=== PATIENT | female | born 1975 | race Caucasian/White ===

== ENCOUNTER → 2017-04-09 | Outpatient (CLI) | payer OTHER ==
[~2017-04-09] MED LIST: ACHD5005 PO; CEFD300C3; CEPH500C PO; CTLP20T; CTLP20T PO; CYCL10TA9 PO; IPRA3AMP19; LITH300T; MTF500T; ONDA-42 SL; PNT40TEC PO; PRM25T PO
== END ==
LOC: CARD 13:50
PROVIDERS: ATTEND Nurse Practitioner Family
DX: R42 Dizziness and giddiness (principal)
CPT/HCPCS: 93005

== ENCOUNTER → 2017-08-07 | Outpatient (CLI) | payer OTHER ==
--- NOTE | 2017-08-07 18:05 | Diagnostic Imaging Report ---
CLINICAL INDICATION: Patient with cough and chest pain x1 week. Exam: Chest x-ray PA and lateral views. Comparisons: Chest x-ray dated 04/26/2009. Findings: Lungs/pleura: Lungs are clear. There is no pneumothorax. There is no pleural effusion. Mediastinum: Unremarkable. Pulmonary vasculature: Unremarkable. Heart: Unremarkable. Bones/extrathoracic soft tissue: There are surgical clips overlying the left upper quadrant which have been placed in the interim. There is small degenerative spurs involving the thoracic spine. Impression: There is no radiographic evidence of acute cardiopulmonary process. Dictated by: Dictated on workstation # [id number]
== END ==
LOC: RAD 17:45
PROVIDERS: ATTEND Family Medicine
DX: R05 Cough (principal); R07.9 Chest pain, unspecified
CPT/HCPCS: 71046

== ENCOUNTER → 2017-11-08 | Outpatient (CLI) | payer OTHER ==
--- NOTE | 2017-11-08 16:30 | Diagnostic Imaging Report ---
INDICATION: Persistent headache x3 months. TECHNIQUE: Noncontrast brain CT is performed. FINDINGS: There were no extra-axial fluid collections. No intracranial hemorrhage. No intracranial mass or mass effect. No midline shift. The ventricles are normal in size and position. There were no focal parenchymal abnormalities in the brain. Calvarial windows were unremarkable. IMPRESSION: Negative noncontrast brain CT. Dictated by: Dictated on workstation # [id number]
== END ==
LOC: RAD 14:39
PROVIDERS: ATTEND Family Medicine
DX: R51 Headache (principal)
CPT/HCPCS: 70450

== ENCOUNTER → 2017-11-14 | Outpatient (CLI) | payer OTHER ==
[~2017-11-14] VITALS: Ht 157.5 cm; Wt 61.2 kg
[~2017-11-14] MED LIST changes: +CATHETER FLUSH 10 ML SYR IVP PRN; +GADOBUTROL 7.5 MMOL/7.5 ML (GADAVIST) VIAL IV ONE; +IOHEXOL 300 MG/ML 30 ML (OMNIPAQUE 300) VIAL IV ONE; +LIDOCAINE 1% INJ 20 ML 20 ML VIAL INJ ONE
--- NOTE | 2017-11-14 18:18 | Diagnostic Imaging Report ---
EXAMINATION: MRI right shoulder with contrast. INDICATION: Shoulder pain. TECHNIQUE: Multiplanar images utilizing both T1- and T2-weighted sequences were obtained. Additional images following administration of intravenous contrast were also performed. FINDINGS: The previous MRI right shoulder exam of 11/26/2014 noted a nondisplaced fracture of the greater tuberosity of the proximal humerus. There is no evidence for a tear of the rotator cuff or for the labrum. A few prominent lymph nodes were seen in the right axilla. On this study, there is a small area of altered signal along the anterior margin of the insertion of the rotator cuff. This may be secondary to susceptibility artifact from a surgical procedure which has occurred in the interval since the prior exam. Correlation with the patient's surgical history would be recommended. There is no evidence for a tear of the rotator cuff, and the supraspinatus muscle is not retracted. However, the undersurface of the supraspinatus muscle near its attachment is somewhat irregular, and there may be a small partial tear in this region. The acromioclavicular joint is not hypertrophied, and there is no narrowing of the outlet for the supraspinatus muscle. The biceps tendon and the subscapularis tendon are intact. The labrum may be slightly thinned posteriorly, but there is no evidence for a labral tear. There is no abnormal signal arising from the osseous structures to suggest bone edema or a fracture. The axillary adenopathy seen on the prior exam is not appreciated on this study. IMPRESSION: 1. There is still no evidence for a tear of the rotator cuff, but the undersurface of the supraspinatus muscle is irregular and may be partially torn. The supraspinatus muscle itself is not retracted or bunched. 2. The small area of altered signal in the soft tissues along the anterior margin of the rotator cuff may be related to susceptibility artifact from interval surgical procedure. 3. The acromioclavicular joint is not hypertrophied, and there is no narrowing of the outlet for the supraspinatus muscle. 4. The labrum is thinned posteriorly, but there is no labral tear identified. 5. There is no sign of an acute bony abnormality. Dictated by: Dictated on workstation # [id number]
--- NOTE | 2017-11-14 18:58 | Diagnostic Imaging Report ---
EXAM: Right shoulder injection for MRI INDICATION: Shoulder pain FINDINGS: The prior right humerus exam of 04/04/2013 failed to show any sign of an acute abnormality. The preliminary film of this study was unremarkable, as well. Following aseptic preparation of the skin and administration of local anesthesia a 21-gauge needle was advanced into the glenohumeral joint using fluoroscopic guidance. Subsequently, a 12 cc mixture of Omnipaque, sodium chloride and Gadavist was infused. The patient tolerated the procedure well and was sent to the MR suite in the condition. IMPRESSION: There has been a successful injection of the glenohumeral joint on the right. MRI is pending for further study. Dictated by: Dictated on workstation # [id number]
== END ==
LOC: RAD 13:32
PROVIDERS: ATTEND Orthopaedic Surgery
DX: M94.8X1 Other specified disorders of cartilage, shoulder (principal)
CPT/HCPCS: 23350; 73040; 73222

== ENCOUNTER → 2017-12-23 | Outpatient (CLI) | payer OTHER ==
[~2017-12-23] MED LIST changes: -CATHETER FLUSH 10 ML SYR IVP PRN; -GADOBUTROL 7.5 MMOL/7.5 ML (GADAVIST) VIAL IV ONE; -IOHEXOL 300 MG/ML 30 ML (OMNIPAQUE 300) VIAL IV ONE; -LIDOCAINE 1% INJ 20 ML 20 ML VIAL INJ ONE
--- NOTE | 2017-12-23 20:49 | Diagnostic Imaging Report ---
INDICATION: Headache times approximately 4 months with neck pain. No known injury. TECHNIQUE: AP, lateral and odontoid views cervical spine.. CORRELATION STUDY: None FINDINGS: Straightening and reversal of normal cervical lordosis, apex at C5 level. Otherwise relatively normal alignment. Vertebral body heights and disc spaces appear maintained and unremarkable. Prevertebral soft tissues are unremarkable. Odontoid unremarkable. Lateral masses C1 and C2 not well-defined. IMPRESSION: 1. Straightening and reversal of normal cervical lordosis associated with splinting and/or spasm versus simply patient positioned. Otherwise relative unremarkable examination of the cervical spine. Dictated by: Dictated on workstation # [id number]
== END ==
LOC: RAD 14:02
PROVIDERS: ATTEND Chiropractor
DX: M54.2 Cervicalgia (principal); R51 Headache
CPT/HCPCS: 72040

== ENCOUNTER 2019-01-05 13:08 | Emergency (ER) | payer OTHER ==
[~2019-01-05] VITALS: Ht 162 cm; Wt 54.0 kg
[2019-01-05 13:26] LABS: BILIRUBIN,URINE NEGATIVE (NEGATIVE); CLARITY,URINE CLEAR; COLOR,URINE YELLOW; GLUCOSE, URINE (UA) NEGATIVE (NEGATIVE); KETONES,URINE NEGATIVE (NEGATIVE); LEUKOCYTE ESTERASE ,URINE NEGATIVE (NEGATIVE); NITRITE,URINE NEGATIVE (NEGATIVE); PH,URINE 5.5 (5-9); PROTEIN,URINE NEGATIVE (NEGATIVE)
[2019-01-05 13:34] LABS: BACTERIA,URINE TRACE /HPF
[2019-01-05] MEDS ORDERED: FAMOTIDINE 20 MG (PEPCID) TABLET PO STA (13:40)
[2019-01-05 13:41] LABS: AMPHETAMINE SCREEN, URINE NEGATIVE (NEGATIVE); BARBITURATE SCREEN URINE NEGATIVE (NEGATIVE); BENZODIAZEPINES SCREEN URINE NEGATIVE (NEGATIVE); CANNABINOID SCREEN, URINE NEGATIVE (NEGATIVE); COCAINE SCREEN URINE NEGATIVE (NEGATIVE); METHADONE STAT NEGATIVE (NEGATIVE); METHAMPHETAMINE SCREEN URINE S NEGATIVE (NEGATIVE); OPIATE SCREEN URINE NEGATIVE (NEGATIVE); OXYCODONE STAT NEGATIVE (NEGATIVE); PROPOXYPHENE STAT NEGATIVE (NEGATIVE); TRICYCLIC ANTIDEPRESSANTS SCRE NEGATIVE (NEGATIVE)
[2019-01-05] MEDS ORDERED: ANTACID SUSP 30 ML UDC (MYLANTA) PO ONE (13:45)
[2019-01-05] MEDS ORDERED: LIDOCAINE 2% VISCOUS 15 ML UDC PO ONE (13:45)
[2019-01-05] MEDS ORDERED: ASPIRIN 81 MG CHEW (CHILDREN'S ASA) PO ONE (13:45)
[2019-01-05 13:52] LABS: BASOPHILS % (AUTO) 0 % (0-10); EOSINOPHILS # (AUTO) 0.2 10^3/uL (0.0-0.3); EOSINOPHILS % (AUTO) 4 % (0-10); HEMATOCRIT 34 % (35-52); HEMOGLOBIN 11.1 G/DL (11.5-16.0); LYMPHOCYTES # (AUTO) 1.4 X 10^3 (1.0-4.0); LYMPHOCYTES % (AUTO) 24 % (12-44); MEAN CORPUSCULAR HEMOGLOBIN 26 PG (25-34); MEAN CORPUSCULAR HGB CONC 33 G/DL (32-36); MEAN CORPUSCULAR VOLUME 78 FL (80-99); MONOCYTES # (AUTO) 0.5 X 10^3 (0.0-1.0); MONOCYTES % (AUTO) 8 % (0-12); NEUTROPHILS # (AUTO) 3.9 X 10^3 (1.8-7.8); NEUTROPHILS % (AUTO) 65 % (42-75); PLATELET COUNT 258 10^3/uL (130-400); RED CELL DISTRIBUTION WIDTH 14.7 % (10.0-14.5)
--- NOTE | 2019-01-05 13:56 | ED Chest Pain ---
General Chief Complaint: Chest Pain Stated Complaint: CHEST PAIN Nursing Triage Note: PT CO OF CHEST PAIN FOR APPROX 1 WEEK HAS HAD RECENT HX OF PNEM Nursing Sepsis Screen: No Definite Risk Source: patient, spouse Exam Limitations: no limitations History of Present Illness Date Seen by Provider: Jan 05, 2019 Time Seen by Provider: 13:34 Initial Comments Patient presents to ER by private conveyance with her significant other and chief complaint of left-sided chest pain radiating around from her back and back through. She says it gets worse throughout the day and she does feel short of breath but she's not having a cough fever chills nausea vomiting sweats. No history of coronary disease. No history of lung disease although 2 weeks ago she was treated with antibiotics alongside her by Dr. Sosa for pneumonia. She does not have a history of GERD. 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 Her chest pain started about a week ago and is only progressively gotten worse. She denies a history of hyperlipidemia, hypertension, diabetes, hypothyroidism, previous coronary disease or early onset familial coronary disease. She denies any swelling pain tenderness or redness in either of her calves. No periods of immobility. No cancer. Allergies and Home Medications Allergies Coded Allergies: Sulfa (Sulfonamide Antibiotics) (Verified Allergy, Unknown, 11/14/17) Home Medications Naproxen 500 Mg Tablet, 500 MG PO BID Prescribed by: BRIE MERCADO on 01/05/19 1504 Patient Home Medication List Home Medication List Reviewed: Yes Review of Systems Review of Systems Constitutional: No chills, No diaphoresis, No fever EENTM: No Blurred Vision, No Double Vision Respiratory: Denies Cough; Shortness of Air Cardiovascular: See HPI, Chest Pain; Denies Edema, Denies Lightheadedness, Denies Palpitations, Denies Syncope Gastrointestinal: Denies Abdomen Distended, Denies Abdominal Pain, Denies Cons tipated, Denies Diarrhea, Denies Difficulty Swallowing, Denies Nausea Genitourinary: Denies Burning, Denies Discharge Musculoskeletal: No back pain, No joint pain Skin: No pruritus, No rash Psychiatric/Neurological: Denies Headache, Denies Numbness, Denies Paresthesia All Other Systems Reviewed Negative Unless Noted: Yes Past Gbxpkra-Owrkld-Lzfdlw Hx Patient Social History Alcohol Use: Occasionally Uses Recreational Drug Use: No Smoking Status: Never a Smoker Recent Foreign Travel: No Contact w/Someone Who Travel: No Recent Infectious Disease Expo: No Physical Abuse: No Sexual Abuse: No Immunizations Up To Date Tetanus Booster (TDap): Less than 5yrs Date of Influenza Vaccine: Dec 19, 2014 Past Medical History Hypertension Depression Physical Exam Vital Signs Vital Signs - First Documented 01/05/19 13:20 O2 Delivery Room Air Capillary Refill : Less Than 3 Seconds Height, Weight, BMI Height: 5'2.00" Weight: 135lbs. 0.0oz. 61.482130cz; 20.00 BMI Method:Stated General Appearance: Anxious, Mild Distress, Thin HEENT: PERRL/EOMI, Pharynx Normal, Moist Mucous Membranes Neck: Full Range of Motion, Normal Inspection, Non Tender, Supple Respiratory: Chest Non Tender, Lungs Clear, Normal Breath Sounds, No Accessory Muscle Use, No Respiratory Distress Cardiovascular: Regular Rate, Rhythm, No Edema, Normal Peripheral Pulses Gastrointestinal: Normal Bowel Sounds, Non Tender, Soft Extremity: Normal Capillary Refill, Normal Inspection, Normal Range of Motion, Non Tender, No Pedal Edema Neurologic/Psychiatric: Alert, Oriented x3, No Motor/Sensory Deficits Skin: Normal Color, Warm/Dry Progress/Results/Core Measures Results/Orders Lab Results Laboratory Tests Test 01/05/19 13:15 01/05/19 13:20 Range/Units Urine Color YELLOW Urine Clarity CLEAR Urine pH 5.5 5-9 Urine Specific [place] >=1.030 1.016-1.022 Urine Protein NEGATIVE NEGATIVE Urine Glucose (UA) NEGATIVE NEGATIVE Urine Ketones NEGATIVE NEGATIVE Urine Nitrite NEGATIVE NEGATIVE Urine Bilirubin NEGATIVE NEGATIVE Urine Urobilinogen 0.2 < = 1.0 MG/DL Urine Leukocyte Esterase NEGATIVE NEGATIVE Urine RBC (Auto) NEGATIVE NEGATIVE Urine RBC NONE /HPF Urine WBC NONE /HPF Urine Squamous Epithelial Cells 2-5 /HPF Urine Crystals NONE /LPF Urine Bacteria TRACE /HPF Urine Casts NONE /LPF Urine Mucus SMALL H /LPF Urine Culture Indicated NO Urine Opiates Screen NEGATIVE NEGATIVE Urine Oxycodone Screen NEGATIVE NEGATIVE Urine Methadone Screen NEGATIVE NEGATIVE Urine Propoxyphene Screen NEGATIVE NEGATIVE Urine Barbiturates Screen NEGATIVE NEGATIVE Ur Tricyclic Antidepressants Screen NEGATIVE NEGATIVE Urine Phencyclidine Screen NEGATIVE NEGATIVE Urine Amphetamines Screen NEGATIVE NEGATIVE Urine Methamphetamines Screen NEGATIVE NEGATIVE Urine Benzodiazepines Screen NEGATIVE NEGATIVE Urine Cocaine Screen NEGATIVE NEGATIVE Urine Cannabinoids Screen NEGATIVE NEGATIVE White Blood Count 6.0 4.3-11.0 10^3/uL Red Blood Count 4.33 L 4.35-5.85 10^6/uL Hemoglobin 11.1 L 11.5-16.0 G/DL Hematocrit 34 L 35-52 % Mean Corpuscular Volume 78 L 80-99 FL Mean Corpuscular Hemoglobin 26 25-34 PG Mean Corpuscular Hemoglobin Concent 33 32-36 G/DL Red Cell Distribution Width 14.7 H 10.0-14.5 % Platelet Count 258 130-400 10^3/uL Mean Platelet Volume 11.0 H 7.4-10.4 FL Neutrophils (%) (Auto) 65 42-75 % Lymphocytes (%) (Auto) 24 12-44 % Monocytes (%) (Auto) 8 0-12 % Eosinophils (%) (Auto) 4 0-10 % Basophils (%) (Auto) 0 0-10 % Neutrophils # (Auto) 3.9 1.8-7.8 X 10^3 Lymphocytes # (Auto) 1.4 1.0-4.0 X 10^3 Monocytes # (Auto) 0.5 0.0-1.0 X 10^3 Eosinophils # (Auto) 0.2 0.0-0.3 10^3/uL Basophils # (Auto) 0.0 0.0-0.1 10^3/uL D-Dimer 0.72 H 0.00-0.49 UG/ML Sodium Level 139 135-145 MMOL/L Potassium Level 3.7 3.6-5.0 MMOL/L Chloride Level 109 H 98-107 MMOL/L Carbon Dioxide Level 22 21-32 MMOL/L Anion Gap 8 5-14 MMOL/L Blood Urea Nitrogen 17 7-18 MG/DL Creatinine 0.85 0.60-1.30 MG/DL Estimat Glomerular Filtration Rate > 60 BUN/Creatinine Ratio 20 Glucose Level 95 70-105 MG/DL Calcium Level 8.5 8.5-10.1 MG/DL Corrected Calcium 8.6 8.5-10.1 MG/DL Total Bilirubin 0.3 0.1-1.0 MG/DL Aspartate Amino Transf (AST/SGOT) 22 5-34 U/L Alanine Aminotransferase (ALT/SGPT) 28 0-55 U/L Alkaline Phosphatase 90 40-136 U/L Troponin I < 0.028 <0.028 NG/ML C-Reactive Protein High Sensitivity 0.01 0.00-0.50 MG/DL Total Protein 6.2 L 6.4-8.2 GM/DL Albumin 3.9 3.2-4.5 GM/DL Serum Test, Qualitative NEGATIVE NEGATIVE My Orders Orders - BRIE MERCADO Continuous Ekg Monitoring (01/05/19 13:19) Ekg Tracing (01/05/19 13:19) Ua Culture If Indicated (01/05/19 13:19) Drug Screen Stat (Urine) (01/05/19 13:19) Hcg,Qualitative Serum (01/05/19 13:19) Cbc With Automated Diff (01/05/19 13:40) Comprehensive Metabolic Panel (01/05/19 13:40) Hs C Reactive Protein (01/05/19 13:40) Fibrin Degradation Products (01/05/19 13:40) Blood Culture (01/05/19 13:40) Troponin I (01/05/19 13:40) Chest Pa/Lat (2 View) (01/05/19 13:40) Lidocaine 2% Viscous 15 Ml (Xylocaine Vi (01/05/19 13:45) Famotidine Tablet (Pepcid Tablet) (01/05/19 13:40) Antacid Suspension (Mylanta Suspension (01/05/19 13:45) Aspirin Chewable Tablet (Baby Aspirin Ch (01/05/19 13:45) Ketorolac Injection (Toradol Injection) (01/05/19 14:15) Ct Angio Chest W (01/05/19 14:08) Ed Iv/Invasive Line Start (01/05/19 14:08) Lactated Ringers (Lr 1000 Ml Iv Solution (01/05/19 14:08) Iohexol Injection (Omnipaque 350 Mg/Ml 1 (01/05/19 14:15) Received Contrast (Hold Metformin- Contr (01/05/19 14:15) Ns (Ivpb) (Sodium Chloride 0.9% Ivpb Bag (01/05/19 14:15) Medications Given in ED Current Medications Medications Dose Ordered Sig/Greg Route Start Time Stop Time Status Last Admin Dose Admin Al Hydrox/Mg Hydrox/Simethicone 30 ml ONCE ONCE PO 01/05/19 13:45 01/05/19 13:46 DC 11/18/19 13:59 30 ML Aspirin 324 mg ONCE ONCE PO 01/05/19 13:45 01/05/19 13:46 DC 01/05/19 13:58 324 MG Iohexol 100 ml ONCE ONCE IV 01/05/19 14:15 01/05/19 14:26 DC 01/05/19 14:45 58 ML Ketorolac Tromethamine 30 mg ONCE ONCE IVP 01/05/19 14:15 01/05/19 14:16 DC 01/05/19 14:19 30 MG Lactated Ringer's 1,000 ml @ 0 mls/hr Q0M ONCE IV 01/05/19 14:08 01/05/19 14:10 DC 01/05/19 14:18 1,000 MLS/HR Lidocaine HCl 15 ml ONCE ONCE PO 01/05/19 13:45 01/05/19 13:46 DC 01/05/19 13:59 15 ML Sodium Chloride 100 ml ONCE ONCE IV 01/05/19 14:15 01/05/19 14:26 DC 01/05/19 14:45 80 ML Vital Signs/I&O 01/05/19 01/05/19 01/05/19 13:10 13:10 13:20 Temp 36.4 36.4 36.4 Pulse 75 75 Resp 24 24 B/P (MAP) 124/82 (96) 124/82 (96) Pulse Ox 100 100 O2 Delivery Room Air Blood Pressure Mean: 96 POS Progress Progress Note #1: Time: 13:53 Progress Note The patient does not have significant risk factors for coronary disease. A simple troponin after a week of left-sided chest pain should rule out anything significant cardiac strain. Pericarditis, myocarditis, pleurisy, ERNUKA D/esophagitis related to her history of Tarah-en-Y bypass are all in the differential. AAA is less likely. A d-dimer would help us rule out pulmonary embolism. We will give her a GI cocktail, aspirin to chew and swallow, if her symptoms do not improve try Toradol. Her abdomen is soft nontender on examination. Her main anxiety is that she thinks might be having heart attack. Progress Note #2: Time: 15:00 Progress Note The patient did experience significant improvement in her discomfort after the Toradol. Plan to put her out on naproxen. CT angiogram unremarkable. Initial ECG Impression Date: Jan 05, 2019 Initial ECG Impression Time: 13:18 Initial ECG Rate: 73 Initial ECG Rhythm: Normal Sinus Initial ECG Intervals: Normal Initial ECG Impression: Normal Comment No acute ST elevation or depression. Diagnostic Imaging Diagonstic Imaging: Xray Plain Films/CT/US/NM/MRI: chest (2v) Comments NAME: JASMINE TURNER [facility] REC#: [id number] PT STATUS: REG ER : 1975 PHYSICIAN: BRIE MERCADO MD ADMIT DATE: 01/05/19/ER Draft POSDate of Exam:01/05/19 CHEST PA/LAT (2 VIEW) INDICATION: Shortness of air COMPARISON: 08/07/2017 FINDINGS: The lungs are clear. There is no failure, effusion or pneumothorax. There is no free air beneath the diaphragms. IMPRESSION: No acute appearing abnormality. Dictated on workstation # [id number] Dict: 01/05/19 1412 Trans: 01/05/19 1414 [facility] [id number] Interpreted by: DAVID MARIANO Electronically signed by: Reviewed: Reviewed by Me Diagonstic Imaging: CT (angiogram) Plain Films/CT/US/NM/MRI: chest Comments Negative for pulmonary embolisms. No acute cardiopulmonary findings. No osseous abnormalities. No intra-abdominal abnormalities noted on the visualized portion of the abdomen. NAME: JASMINE TURNER [facility] REC#: [id number] PT STATUS: REG ER : 1975 PHYSICIAN: BRIE MERCADO MD ADMIT DATE: 01/05/19/ER Draft POSDate of Exam:01/05/19 CT ANGIO CHEST W PROCEDURE: CT angiography of the chest with contrast. TECHNIQUE: Multiple contiguous axial images were obtained through the chest after uneventful bolus administration of intravenous contrast. 3D reconstructed CTA MIP acquisitions were also performed. Auto Exposure Controls were utilized during the CT exam to meet ALARA standards for radiation dose reduction. INDICATION: Left-sided chest pain, shortness of air and nausea. FINDINGS: There are no pulmonary arterial filling defects. There are no findings of pulmonary arterial embolus. The patent thoracic aorta is nonaneurysmal and nonfocal and nonacute. No edema, pneumonia, effusion or pneumothorax. No lung mass or thoracic adenopathy. No acute chest wall pathology. The visualized upper abdomen shows postoperative changes presumed gastric bypass. IMPRESSION: Negative for PE or other acute thoracic abnormalities. Dictated on workstation # [id number] Dict: 01/05/19 1457 Trans: 01/05/19 1500 [facility] [id number] Interpreted by: DAVID MARIANO Electronically signed by: Reviewed: Reviewed by Me Departure Impression Primary Impression: Pleurisy Disposition: HOME, SELF-CARE Condition: Improved Departure-Patient Inst. Decision time for Depature: 15:30 Referrals: CARIDAD SOSA DO (PCP/Family) Primary Care Physician Patient Instructions: Chest Pain That Is Not Caused by the Heart (DC), Pleuritic Chest Pain Add. Discharge Instructions: Naproxen 500 mg twice daily as needed for pain. It is often more effective when taken on a schedule. Tylenol 1000 mg every 8 hours as needed for pain. Plan to follow up if not seeing some significant improvement in the next week with primary care for further evaluation. All discharge instructions reviewed with patient and/or family. Voiced understanding. Scripts Naproxen (Naprosyn) 500 Mg Tablet 500 MG PO BID, #30 TAB 0 Refills Prov: BRIE MERCADO 01/05/19 Work/School Note: Work Release Form Date Seen in the Emergency Department: Jan 05, 2019 Return to Work: Jan 06, 2019 Restrictions: No Restrictions BRIE MERCADO Jan 05, 2019 13:56 POS
[2019-01-05 14:05] LABS: ALANINE AMINOTRANSFERASE 28 U/L (0-55); ALBUMIN 3.9 GM/DL (3.2-4.5); ALKALINE PHOSPHATASE 90 U/L (40-136); BILIRUBIN,TOTAL 0.3 MG/DL (0.1-1.0); BUN/CREATININE RATIO 20; CALCIUM 8.5 MG/DL (8.5-10.1); CARBON DIOXIDE 22 MMOL/L (21-32); CHLORIDE 109 MMOL/L (98-107); CREATININE SERUM 0.85 MG/DL (0.60-1.30); GFR ESTIMATED > 60; GLUCOSE 95 MG/DL (70-105); POTASSIUM 3.7 MMOL/L (3.6-5.0); SODIUM 139 MMOL/L (135-145); TOTAL PROTEIN 6.2 GM/DL (6.4-8.2)
[2019-01-05] MEDS ORDERED: LACTATED RINGERS 1,000 ML IV ONE (14:08)
[2019-01-05] MEDS ORDERED: HOLD METFORMIN - RECEIVED CONTRAST 20 ML VIAL IV SCH (14:15)
[2019-01-05] MEDS ORDERED: KETOROLAC 30 MG/ML VIAL IVP ONE (14:15)
[2019-01-05] MEDS ORDERED: IOHEXOL 350 MG/ML 100 ML (OMNIPAQUE 350) VIAL IV ONE (14:15)
[2019-01-05] MEDS ORDERED: NS 100 ML (IVPB) BAG IV ONE (14:15)
--- NOTE | 2019-01-05 14:15 | Diagnostic Imaging Report ---
INDICATION: Shortness of air COMPARISON: 08/07/2017 FINDINGS: The lungs are clear. There is no failure, effusion or pneumothorax. There is no free air beneath the diaphragms. IMPRESSION: No acute appearing abnormality. Dictated by: Dictated on workstation # [id number]
--- NOTE | 2019-01-05 14:47 | NUR ---
PATIENT MOVED TO ROOM 10 AT THIS TIME.
--- NOTE | 2019-01-05 15:00 | Diagnostic Imaging Report ---
PROCEDURE: CT angiography of the chest with contrast. TECHNIQUE: Multiple contiguous axial images were obtained through the chest after uneventful bolus administration of intravenous contrast. 3D reconstructed CTA MIP acquisitions were also performed. Auto Exposure Controls were utilized during the CT exam to meet ALARA standards for radiation dose reduction. INDICATION: Left-sided chest pain, shortness of air and nausea. FINDINGS: There are no pulmonary arterial filling defects. There are no findings of pulmonary arterial embolus. The patent thoracic aorta is nonaneurysmal and nonfocal and nonacute. No edema, pneumonia, effusion or pneumothorax. No lung mass or thoracic adenopathy. No acute chest wall pathology. The visualized upper abdomen shows postoperative changes presumed gastric bypass. IMPRESSION: Negative for PE or other acute thoracic abnormalities. Dictated by: Dictated on workstation # [id number]
[2019-01-05] MEDS ORDERED: NAPR-1071 PO (15:04)
[2019-01-05 15:42] VITALS: BP 119/82
== END 2019-01-05 15:44 | disposition home or self-care (01) ==
LOC: EDUNIT# 13:08 → ER 13:15
DX: R09.1 Pleurisy (principal); I10 Essential (primary) hypertension; F32.9 Major depressive disorder, single episode, unspecified; Z88.2 Allergy status to sulfonamides
CPT/HCPCS: 36415; 71046; 71275; 80053; 80306; 81000; 84484; 84703; 85025; 85379; 86141; 87040; 93005

== ENCOUNTER 2019-01-20 09:10 | Observation (INO) | payer OTHER ==
[~2019-01-20] VITALS: Ht 157.5 cm; Wt 51.0 kg
[~2019-01-20 09:10] MED LIST changes: +NAPR-1071 PO
[2019-01-20 11:35] VITALS: BP 114/76
--- NOTE | 2019-01-20 11:56 | Cardiology History & Physical ---
HPI-Cardiology Cardiology H&P Date of Admission 01-20-19 Primary Care Physician Indira Sosa DO Attending Physician Ashia Latif MD Facp [facility] Consulting Physician [facility] Ms. Jurado is a 43 year old female who presented today for an out pt treadmill stress test. While exercising she reported sharp, stabbing chest pain which radiated from center of her chest to the left side. She reports dizziness at the time. She states approx a month ago she was treated as an out pt for pneumonia. She reports since then she has had sharp, stabbing mid-sternal chest pain which has been constant. It changes in intensity with activity, becoming worse and radiating across her chest. She states she has had increasing dyspnea. She reports weight loss of approx 15 lbs in the last month. She reports poor appetite. She states previous the the pneumonia she was running 7- 10 mile per day training for a 1/2 marathon. She denies any n/v/d. She denies any fever or chills since recovering from pneumonia. She states a few days ago she was at [employer] squatting down to look at lower shelf and when she stood up she felt very lightheaded and as though she might pass out, however she did not. Review of Systems-Cardiology Review of Systems Constitutional: As described under HPI Eyes: No vision change Ears/Nose/Throat: No epistaxis, No recent hearing loss Respiratory: As described under HPI Cardiovascular: As described under HPI Gastrointestinal: No constipation, No diarrhea, No nausea, No vomiting Genitourinary: No dysuria, No hematuria Musculoskeletal: no symptoms reported Skin: No rash on exposed areas, No ulcerations on exposed areas Psychiatric/Neurological: As described under HPI Hematologic: No bleeding abnormalities VGS-Kovjnw-Qqrbnc Hx Patient Social History 2nd Hand Smoke Exposure: No Recent Foreign Travel: No Immunizations Up To Date Tetanus Booster (TDap): Less than 5yrs Date of Influenza Vaccine: Dec 19, 2018 Past Medical History PMH As described under Assessment. Family Medical History Family Medical History: She denies any family h/o CAD or premature SCD. She reports her father had skin cancer. Allergies and Home Medications Allergies Coded Allergies: Sulfa (Sulfonamide Antibiotics) (Verified Allergy, Unknown, 11/14/17) Home Medications Pantoprazole Sodium 40 Mg Tablet.dr, 40 MG PO DAILY Prescribed by: INDIRA SOSA on 01/21/19 1241 Sumatriptan Succinate 100 Mg Tablet, PO UD PRN for MIGRAINE, (Reported) Topiramate 100 Mg Cap.er.24h, 100 MG PO HS, (Reported) Physical Exam-Cardiology Physical Exam Vital Signs/I&O 01/21/19 01/21/19 01/21/19 01/21/19 06:45 08:00 08:00 09:00 Temp 36.8 Pulse 70 78 Resp 18 B/P (MAP) 105/71 (82) Pulse Ox 98 100 100 O2 Delivery Room Air Room Air Room Air 01/21/19 01/21/19 01/21/19 01/21/19 12:00 12:00 13:02 13:06 Temp 36.4 Pulse 72 70 82 Resp 20 B/P (MAP) 118/80 (93) Pulse Ox 100 98 O2 Delivery Room Air Room Air 01/21/19 01/21/19 01/21/19 01/21/19 14:00 14:18 14:43 16:00 Temp 37.4 37.4 37.4 Pulse 78 78 76 Resp 19 19 20 B/P (MAP) 114/76 (89) 114/76 112/76 Pulse Ox 98 98 98 98 O2 Delivery Room Air Room Air Room Air Room Air 01/21/19 00:00 Intake Total 444 ml Balance 444 ml Capillary Refill : Constitutional: AAO x 3, well-developed, other (thin) HEENT: PERRL, hearing is well preserved, oral hygience is good Neck: No carotid bruit; carotid pulses are 2 + bilaterally Respiratory: No accessory muscle use, No respiratory distress; chest expansion is symmetric, chest is bilaterally symmetric, lungs clear to auscultation Cardiovascular: regular rate-rhythm; No JVD; S1 and S2 Gastrointestinal: No tender; soft, round, audible bowel sounds Extremities: no lower extremity edema bilateral Neurologic/Psychiatric: grossly intact Skin: No rash on exposed areas, No ulcerations on exposed areas Data Review Labs Laboratory Tests 01/21/19 04:00: White Blood Count 4.6, Red Blood Count 2.92L, Hemoglobin 7.4L, Hematocrit 23L, Mean Corpuscular Volume 79L, Mean Corpuscular Hemoglobin 25, Mean Corpuscular Hemoglobin Concent 32, Red Cell Distribution Width 14.2, Platelet Count 449H, Mean Platelet Volume 9.2 01/21/19 04:10: Sodium Level 140, Potassium Level 3.8, Chloride Level 110H, Carbon Dioxide Level 20L, Anion Gap 10, Blood Urea Nitrogen 13, Creatinine 0.72, Estimat Glomerular Filtration Rate > 60, BUN/Creatinine Ratio 18, Glucose Level 87, Calcium Level 8.2L, Troponin I < 0.028 A/P-Cardiology Assessment/Admission Diagnosis Chest pain of undetermined etiology ROBERTS Recent 15 lb weight loss in the last month (poor appetite) Recent pneumonia (last month, tx with ABX) CTA of the chest on 01-05-19 was negative for PE or other acute thoracic abnormalities H/O cholecystectomy Admission Status: Observation Discussion and Recomendations Chest pain of undetermined etiology with some features consistent with angina Therefore, we have admitted to the hospital for cardiac cath Further recs will be based on her hospital course Echocardiogram to eval BEN Mccain Jan 20, 2019 11:56 POS
[2019-01-20 12:38] LABS: MEAN PLATELET VOLUME 8.9 FL (7.4-10.4); RED CELL DISTRIBUTION WIDTH 14.2 % (10.0-14.5); WHITE BLOOD COUNT 4.6 10^3/uL (4.3-11.0)
[2019-01-20] MEDS ORDERED: TOPI100C6 PO (12:48)
[2019-01-20] MEDS ORDERED: SUMA100T3 PO (12:48)
[2019-01-20 13:08] LABS: PROTHROMBIN TIME PATIENT 13.8 SEC (12.2-14.7)
[2019-01-20 13:19] LABS: ALANINE AMINOTRANSFERASE 16 U/L (0-55); ALBUMIN 3.6 GM/DL (3.2-4.5); ALKALINE PHOSPHATASE 90 U/L (40-136); BILIRUBIN,TOTAL 0.3 MG/DL (0.1-1.0); BUN/CREATININE RATIO 18; CALCIUM 8.2 MG/DL (8.5-10.1); CARBON DIOXIDE 23 MMOL/L (21-32); CHLORIDE 108 MMOL/L (98-107); CHOLESTEROL 107 MG/DL (< 200); GFR ESTIMATED > 60; GLUCOSE 89 MG/DL (70-105); HDL CHOLESTEROL 53 MG/DL (40-60); MAGNESIUM 2.2 MG/DL (1.6-2.4); POTASSIUM 3.5 MMOL/L (3.6-5.0); SODIUM 139 MMOL/L (135-145); TOTAL PROTEIN 5.9 GM/DL (6.4-8.2); TRIGLYCERIDES 77 MG/DL (<150); VLDL CHOLESTEROL 15 MG/DL (5-40)
[2019-01-20] MEDS ORDERED: LIDOCAINE 1% INJ 20 ML 20 ML VIAL ONE (13:53)
[2019-01-20] MEDS ORDERED: HEParin (CATH LAB) 0 ML IV ONE (13:54)
[2019-01-20] MEDS ORDERED: NS IV 500 ML 500 ML IV ONE (14:15)
[2019-01-20] MEDS ORDERED: FERRIC CARBOXYMALTOSE INJ 750 MG in NS (IVPB) 250 ML IV SCH (14:45)
[2019-01-20] MEDS ORDERED: ACETAMINOPHEN 325 MG TABLET PO PRN (14:45)
--- NOTE | 2019-01-20 14:56 | Diagnostic Imaging Report ---
INDICATION: Chest pain and dyspnea. Time of exam 2:01 PM Correlation is made with prior chest from 01/05/2019. The heart size is normal. The pulmonary vascularity is unremarkable. The lungs are clear. No infiltrate, effusion or pneumothorax is detected. Impression: No acute cardiopulmonary process is detected. Dictated by: Dictated on workstation # [id number]
[2019-01-20] MEDS ORDERED: PANTOPRAZOLE 40 MG (PROTONIX) VIAL IV NR (15:00)
[2019-01-20 15:42] VITALS: BP 108/69
--- NOTE | 2019-01-20 16:07 | Cardiology History & Physical ---
HPI-Cardiology Cardiology H&P Date of Admission 01/20/19 Primary Care Physician Indira Sosa DO Attending Physician Ashia Latif MD, MA FACP [facility] Consulting Physician MARIA LUISA CC: Chest discomfort and shortness of breath HPI: Ms. Jurado is a 43 year old female who presented today for an out pt treadmill stress test. While exercising she reported sharp, stabbing chest pain which radiated from center of her chest to the left side. She reports dizziness at the time. She states approx a month ago she was treated as an out pt for pneumonia. She reports since then she has had sharp, stabbing mid-sternal chest pain which has been constant. It changes in intensity with activity, becoming worse and radiating across her chest. She states she has had increasing dyspnea. She reports weight loss of approx 15 lbs in the last month. She reports poor appetite. She states previous the the pneumonia she was running 7- 10 mile per day training for a / marathon. She denies any n/v/d. She denies any fever or chills since recovering from pneumonia. She states a few days ago she was at [employer] squatting down to look at lower shelf and when she stood up she felt very lightheaded and as though she might pass out, however she did not. Review of Systems-Cardiology Review of Systems Constitutional: As described under HPI Eyes: No vision change Ears/Nose/Throat: No epistaxis, No recent hearing loss Respiratory: As described under HPI Cardiovascular: As described under HPI Gastrointestinal: No constipation, No diarrhea, No nausea, No vomiting Genitourinary: No dysuria, No hematuria Musculoskeletal: no symptoms reported Skin: No rash on exposed areas, No ulcerations on exposed areas Psychiatric/Neurological: As described under HPI Hematologic: No bleeding abnormalities SWE-Scybdr-Gkvoky Hx Patient Social History Alcohol Use: Denies Use Recreational Drug Use: No Smoking Status: Never a Smoker 2nd Hand Smoke Exposure: No Recent Foreign Travel: No Recent Infectious Disease Expo: No Physical Abuse Screen: No Sexual Abuse: No Immunizations Up To Date Tetanus Booster (TDap): Less than 5yrs Date of Influenza Vaccine: Dec 19, 2018 Past Medical History PMH As described under Assessment. Family Medical History Family Medical History: She denies any family h/o CAD or premature SCD. She reports her father had skin cancer. Allergies and Home Medications Allergies Coded Allergies: Sulfa (Sulfonamide Antibiotics) (Verified Allergy, Unknown, 11/14/17) Home Medications Sumatriptan Succinate 100 Mg Tablet, PO UD PRN for MIGRAINE, (Reported) Topiramate 100 Mg Cap.er.24h, 100 MG PO HS, (Reported) Patient Home Medication List Home Medication List Reviewed: Yes Physical Exam-Cardiology Physical Exam Vital Signs/I&O 01/20/19 01/20/19 01/20/19 01/20/19 11:35 12:06 15:17 15:42 Temp 36.6 37.2 Pulse 65 68 71 Resp 16 18 B/P (MAP) 114/76 (89) 108/69 (82) Pulse Ox 100 98 100 O2 Delivery Room Air Room Air Room Air Capillary Refill : Constitutional: AAO x 3, well-developed, other (thin) HEENT: PERRL, hearing is well preserved, oral hygience is good Neck: No carotid bruit; carotid pulses are 2 + bilaterally Respiratory: No accessory muscle use, No respiratory distress; chest expansion is symmetric, chest is bilaterally symmetric, lungs clear to auscultation Cardiovascular: regular rate-rhythm; No JVD; S1 and S2 Gastrointestinal: No tender; soft, round, audible bowel sounds Extremities: no lower extremity edema bilateral Neurologic/Psychiatric: grossly intact Skin: No rash on exposed areas, No ulcerations on exposed areas Data Review Labs Laboratory Tests 01/20/19 12:30: White Blood Count 4.6, Red Blood Count 3.21L, Hemoglobin 8.0L, Hematocrit 25L, Mean Corpuscular Volume 79L, Mean Corpuscular Hemoglobin 25, Mean Corpuscular Hemoglobin Concent 32, Red Cell Distribution Width 14.2, Platelet Count 518H, Mean Platelet Volume 8.9, Erythrocyte Sedimentation Rate 33H, Prothrombin Time 13.8, INR Comment 1.0, Sodium Level 139, Potassium Level 3.5L, Chloride Level 108H, Carbon Dioxide Level 23, Anion Gap 8, Blood Urea Nitrogen 14, Creatinine 0.80, Estimat Glomerular Filtration Rate > 60, BUN/Creatinine Ratio 18, Glucose Level 89, Calcium Level 8.2L, Corrected Calcium 8.5, Magnesium Level 2.2, Total Bilirubin 0.3, Aspartate Amino Transf (AST/SGOT) 15, Alanine Aminotransferase (ALT/SGPT) 16, Alkaline Phosphatase 90, Total Protein 5.9L, Albumin 3.6, Triglycerides Level 77, Cholesterol Level 107, LDL Cholesterol Direct 37, VLDL Cholesterol 15, HDL Cholesterol 53, Thyroid Stimulating Hormone (TSH) 0.38, Serum Test, Qualitative NEGATIVE A/P-Cardiology Assessment/Admission Diagnosis Chest pain of undetermined etiology ROBERTS Severe anemia with microcytic indices (suggesting iron def anemia, possibly due to occult blood loss) Recent 15 lb weight loss in the last month (poor appetite) H/o bariatric surgery Pneumonia in Dec 2018, tx with ABX (Dr Sosa) CTA of the chest on 01-05-19 was negative for PE or other acute thoracic abnormalities H/O cholecystectomy Admission Status: Observation Discussion and Recomendations * Our initial plan was to proceed with card cath, because pt had poor exercise capacity and developed shortness of breath on the treadmill (and chronic chest discomfort got worse) but now labs have indicated marked anemia. This may be the source of her symptoms. I have discussed her case with Dr Sosa (her pcp) on the phone today. Plan is to try and correct anemia first and then decide on card cath * Echo is recommended to eval for structural heart disease * Further recs to be based on her hosp course Clinical Quality Measures DVT/VTE Risk/Contraindication: Risk Factor Score Per Nursin RFS Level Per Nursing on Admit: 1=Low/No VTE PPX ASHIA LATIF MD FACP FAC [facility]S Jan 20, 2019 16:07 POS
--- NOTE | 2019-01-20 17:57 | Consultation ---
History of Present Illness History of Present Illness Patient Consulted On(chavo/time) 01/20/19 17:52 Date Seen by Provider: Jan 20, 2019 Time Seen by Provider: 12:55 History of Present Illness This is a 43 year old female who was treated about 1month ago for pneumonia. She has been having left sided sharp chest pain and shortness of air for the past few weeks. She has had extensive workup including a negative CT angiogram to rule out PE. She was sent for a stress test but was not even on the treadmill for 1 minute when she had severe left sided chest pain radiating to her left arm with associated dizziness. The stress test was stopped and she was directly admitted to proceed with cardiac catheterization. However, she was found to be anemic with a hemogobin of 8. She has a known history of anemia from her previous bariatric surgery and has not been eating well over the past month. Allergies and Home Medications Allergies Coded Allergies: Sulfa (Sulfonamide Antibiotics) (Verified Allergy, Unknown, 11/14/17) Home Medications Sumatriptan Succinate 100 Mg Tablet, PO UD PRN for MIGRAINE, (Reported) Topiramate 100 Mg Cap.er.24h, 100 MG PO HS, (Reported) Patient Home Medication List Home Medication List Reviewed: Yes Past Zvpffhj-Vlogqk-Rywgwt Hx Past Med/Social Hx: Reviewed Nursing Past Med/Soc Hx Patient Social History Alcohol Use: Denies Use Recreational Drug Use: No Smoking Status: Never a Smoker 2nd Hand Smoke Exposure: No Recent Foreign Travel: No Contact w/Someone Who Travel: No Recent Infectious Disease Expo: No Recent Hopitalizations: No Immunizations Up To Date Tetanus Booster (TDap): Less than 5yrs PED Vaccines UTD: No Date of Influenza Vaccine: Dec 19, 2018 Seasonal Allergies Seasonal Allergies: No Past Medical History Surgeries: Yes Section Respiratory: No Cardiac: No Hypertension Neurological: No Headaches /Migraines Genitourinary: No Gastrointestinal: No Musculoskeletal: No Endocrine: No HEENT: No Cancer: No Psychosocial: No Depression Integumentary: No Blood Disorders: No Review of Systems-General Constitutional: dizziness, weakness, weight loss EENTM: No see HPI, No no symptoms reported, No ear discharge, No hearing loss, No ear pain, No blurred vision, No double vision, No eye pain, No tearing, No vision loss, No dental problems, No hoarseness, No mouth pain, No mouth swelling, No epistaxis, No nose congestion, No nose pain, No throat pain, No throat swelling, No other Respiratory: dyspnea on exertion, short of breath Cardiovascular: chest pain Gastrointestinal: loss of appetite Genitourinary: No no symptoms reported, No see HPI, No decreased output, No discharge, No dysuria, No frequency, No hematuria, No hesitancy, No incontinence, No nocturia, No pain, No other Musculoskeletal: muscle weakness Skin: No no symptoms reported, No see HPI, No change in color, No change in hair/nails, No dryness, No hx of skin cancer, No lesions, No lumps, No pruritus, No rash, No other Psychiatric/Neurological: Anxiety, Headache, Weakness Physical Exam-General Problems Physical Exam Vital Signs Vital Signs - First Documented 01/20/19 01/20/19 11:17 11:35 Temp 36.6 Pulse 68 Resp 16 B/P (MAP) 114/76 (89) Pulse Ox 100 O2 Delivery Room Air Capillary Refill : General Appearance: no apparent distress HEENT: normal ENT inspection Neck: supple Respiratory: lungs clear Cardiovascular: regular rate, rhythm Gastrointestinal: normal bowel sounds, non tender, soft Back: no CVA tenderness Extremities: non-tender, normal inspection, no pedal edema, no calf tenderness Neurologic/Psychiatric: no motor/sensory deficits, alert, normal mood/affect Skin: warm/dry Comments Laboratory Tests 01/20/19 12:30: White Blood Count 4.6, Red Blood Count 3.21L, Hemoglobin 8.0L, Hematocrit 25L, Mean Corpuscular Volume 79L, Mean Corpuscular Hemoglobin 25, Mean Corpuscular Hemoglobin Concent 32, Red Cell Distribution Width 14.2, Platelet Count 518H, Mean Platelet Volume 8.9, Erythrocyte Sedimentation Rate 33H, Prothrombin Time 13.8, INR Comment 1.0, Sodium Level 139, Potassium Level 3.5L, Chloride Level 108H, Carbon Dioxide Level 23, Anion Gap 8, Blood Urea Nitrogen 14, Creatinine 0.80, Estimat Glomerular Filtration Rate > 60, BUN/Creatinine Ratio 18, Glucose Level 89, Calcium Level 8.2L, Corrected Calcium 8.5, Magnesium Level 2.2, Total Bilirubin 0.3, Aspartate Amino Transf (AST/SGOT) 15, Alanine Aminotransferase (ALT/SGPT) 16, Alkaline Phosphatase 90, Total Protein 5.9L, Albumin 3.6, Triglycerides Level 77, Cholesterol Level 107, LDL Cholesterol Direct 37, VLDL Cholesterol 15, HDL Cholesterol 53, Thyroid Stimulating Hormone (TSH) 0.38, Serum Test, Qualitative NEGATIVE Assessment/Plan Assessment/Plan Admission Diagnosis/Plan 1. Chest Pain, uncertain etiology--admitted by cardiology to proceed with cardiac catheterization 2. Acute on Chronic Anemia--give injectafor, cardiology wants at least 1 unit of blood prior to cardiac cath due to need to give heparin 3. Recent Pneumonia--resolved Admission Status: Observation Clinical Quality Measures DVT/VTE Risk/Contraindication: Risk Factor Score Per Nursin RFS Level Per Nursing on Admit: 1=Low/No VTE PPX CARIDAD JEFFERSON DO Jan 20, 2019 17:57 POS
[2019-01-20 19:00] VITALS: BP 115/79
[2019-01-21] VITALS (12 sets, daily range): BP systolic 103–118; BP diastolic 65–81
[2019-01-21 04:22] LABS: HEMOGLOBIN 7.4 G/DL (11.5-16.0); MEAN PLATELET VOLUME 9.2 FL (7.4-10.4); RED CELL DISTRIBUTION WIDTH 14.2 % (10.0-14.5); WHITE BLOOD COUNT 4.6 10^3/uL (4.3-11.0)
[2019-01-21 04:40] LABS: BUN/CREATININE RATIO 18; CALCIUM 8.2 MG/DL (8.5-10.1); CARBON DIOXIDE 20 MMOL/L (21-32); CHLORIDE 110 MMOL/L (98-107); CREATININE SERUM 0.72 MG/DL (0.60-1.30); GFR ESTIMATED > 60; GLUCOSE 87 MG/DL (70-105); POTASSIUM 3.8 MMOL/L (3.6-5.0); SODIUM 140 MMOL/L (135-145)
[2019-01-21] MEDS ORDERED: PANTOPRAZOLE 40 MG (PROTONIX) VIAL IV SCH (09:00)
--- NOTE | 2019-01-21 09:22 | Progress Note - Cardiology ---
Cardiology SOAP Progress Note Subjective: In bed. Continues to c/o mid-sternal, sharp, stabbing chest pain with ambulation. Reports no CP at rest this morning. Objective: I&O/Vital Signs 01/21/19 01/21/19 01/21/19 01/21/19 06:45 08:00 08:00 09:00 Temp 36.8 Pulse 70 78 Resp 18 B/P (MAP) 105/71 (82) Pulse Ox 98 100 100 O2 Delivery Room Air Room Air Room Air 01/21/19 01/21/19 01/21/19 01/21/19 12:00 12:00 13:02 13:06 Temp 36.4 Pulse 72 70 82 Resp 20 B/P (MAP) 118/80 (93) Pulse Ox 100 98 O2 Delivery Room Air Room Air 01/21/19 01/21/19 01/21/19 01/21/19 14:00 14:18 14:43 16:00 Temp 37.4 37.4 37.4 Pulse 78 78 76 Resp 19 19 20 B/P (MAP) 114/76 (89) 114/76 112/76 Pulse Ox 98 98 98 98 O2 Delivery Room Air Room Air Room Air Room Air 01/21/19 00:00 Intake Total 444 ml Balance 444 ml Weight (Pounds): 135 Weight (Ounces): 0.0 Weight (Calculated Kilograms): [id number] Constitutional: AAO x 3, well-developed, other (thin) Respiratory: No accessory muscle use, No respiratory distress; chest expansion is symmetric, chest is bilaterally symmetric, lungs clear to auscultation Cardiovascular: regular rate-rhythm; No JVD; S1 and S2 Gastrointestional: No tender; soft, round, audible bowel sounds Extremities: no lower extremity edema bilateral Neurologic/Psychiatric: grossly intact Skin: No rash on exposed areas, No ulcerations on exposed areas Results/Procedures: Labs Laboratory Tests 01/21/19 04:00: White Blood Count 4.6, Red Blood Count 2.92L, Hemoglobin 7.4L, Hematocrit 23L, Mean Corpuscular Volume 79L, Mean Corpuscular Hemoglobin 25, Mean Corpuscular Hemoglobin Concent 32, Red Cell Distribution Width 14.2, Platelet Count 449H, Mean Platelet Volume 9.2 01/21/19 04:10: Sodium Level 140, Potassium Level 3.8, Chloride Level 110H, Carbon Dioxide Level 20L, Anion Gap 10, Blood Urea Nitrogen 13, Creatinine 0.72, Estimat Glomerular Filtration Rate > 60, BUN/Creatinine Ratio 18, Glucose Level 87, Calcium Level 8.2L, Troponin I < 0.028 A/P: Assessment: Chest pain of undetermined etiology ROBERTS Echo of 01-20-19: LVEF 60-65%. Atrial septum redundant. Somewhat aneurysmal. PFO can not be excluded. No signif shunt seen. Severe anemia with microcytic indices (suggesting iron def anemia, possibly due to occult blood loss) Recent 15 lb weight loss in the last month (poor appetite) H/o bariatric surgery Pneumonia in Dec 2018, tx with ABX (Dr Sosa) CTA of the chest on 01-05-19 was negative for PE or other acute thoracic abnormalities H/O cholecystectomy Plan: * Our initial plan was to proceed with card cath, because pt had poor exercise capacity and developed shortness of breath on the treadmill (and chronic chest discomfort got worse) but now labs have indicated marked anemia. This may be the source of her symptoms. We have discussed her case with Dr Sosa (her pcp). * Plan is to try and correct anemia first and then decide on card cath * Management of anemia is per medical services BEN ANNA Jan 21, 2019 09:22 POS
--- NOTE | 2019-01-21 12:07 | NUR ---
"RD ASSESSMENT PMHx: anemia; h/o bariatric surgery; cholecystectomy; HTN PT INTERACTION: Pt was awake and pleasant during consult for MST score. Pt states current appetite is fair and has been for some time. Note pt avg PO intake of 63% x2meal, per chart review. Pt states following a regular diet at home, and has no issues with chewing/swallowing food at this time. Pt states episodes of n/v over the past 2 weeks. Pt states episodes of constipation and diarreha during that timeframe as well. Pt states last BM was 01/19. Note pt not currently on bowel regimen, per chart review. Pt states recent 30# wt loss x6mon. This is significant at 21%. Note pt has h/o bariatric surgery, per chart review. Note 6# wt loss x2w, per chart review. Though wt loss is significant, d/t pt's current PO intake, pt does not meet criteria for malnutrition per ASPEN guidelines. ABNORMAL NUTRITION-RELATED LAB VALUES LOW: Ca 8.2; Hgb 7.4; Hct 23 HIGH: Cl 110 Est. kcal needs: 5352-9605 kcal | 25-30 kcal/kg Est. Pro needs: 51-61 g Pro | 0.8-1.0 g Pro/kg PES STATEMENT: Inadequate oral intake (NI-2.1) related to loss of appetite | n/v/c/d as evidenced by pt interview | avg PO intake 63% x2meal INTERVENTION: Continue with current diet order of Heart Healthy diet. Pt may benefit from nutrition supplementation if PO intake declines. Will continue to follow and reassess as pt needs and status change. MONITOR/EVALUATE: PO Intake; Plan of Care; Hydration Status; Weight Status; Lab Values Jorge Browning, MS, RD, LD"
[2019-01-21] MEDS ORDERED: NS IV 500 ML 500 ML IV SCH (12:30)
[2019-01-21] MEDS ORDERED: PANT40TA3 PO (12:41)
--- NOTE | 2019-01-21 12:45 | Progress Note ---
Subjective Date Seen by a Provider: Jan 21, 2019 Time Seen by a Provider: 12:43 Subjective/Events-last exam Fwup CP, anemia. Did not get blood transfusion yesterday because it was cancelled and did not get injectafor because is not on inpatient formulary. Objective Exam Vital Signs Date Time Temp Pulse Resp B/P (MAP) Pulse Ox O2 Delivery O2 Flow Rate FiO2 01/21/19 12:00 36.4 72 20 118/80 (93) 100 Room Air 01/21/19 09:00 100 Room Air 01/21/19 08:00 36.8 78 18 105/71 (82) 100 Room Air 01/21/19 08:00 98 Room Air 01/21/19 06:45 70 01/21/19 04:00 36.6 68 16 118/78 (91) 98 Room Air 01/21/19 04:00 98 Room Air 01/21/19 01:00 60 01/21/19 00:00 37.1 68 18 111/65 (80) 99 Room Air 01/21/19 00:00 98 Room Air 01/20/19 21:00 100 Room Air 01/20/19 20:00 98 Room Air 01/20/19 19:00 80 01/20/19 19:00 37.2 76 18 115/79 (91) 99 Room Air 01/20/19 16:00 98 Room Air 01/20/19 15:42 37.2 71 18 108/69 (82) 100 Room Air 01/20/19 15:17 98 Room Air 01/20/19 13:00 64 I & O 01/21/19 07:00 Intake Total 444 ml Balance 444 ml Capillary Refill : General Appearance: No Apparent Distress Neck: Supple Respiratory: Lungs Clear Cardiovascular: Regular Rate, Rhythm Neurologic/Psychiatric: Alert, Oriented x3 Results Lab Laboratory Tests 01/21/19 04:00: White Blood Count 4.6, Red Blood Count 2.92L, Hemoglobin 7.4L, Hematocrit 23L, Mean Corpuscular Volume 79L, Mean Corpuscular Hemoglobin 25, Mean Corpuscular Hemoglobin Concent 32, Red Cell Distribution Width 14.2, Platelet Count 449H, Mean Platelet Volume 9.2 01/21/19 04:10: Sodium Level 140, Potassium Level 3.8, Chloride Level 110H, Carbon Dioxide Level 20L, Anion Gap 10, Blood Urea Nitrogen 13, Creatinine 0.72, Estimat Glomerular Filtration Rate > 60, BUN/Creatinine Ratio 18, Glucose Level 87, Calcium Level 8.2L, Troponin I < 0.028 Assessment/Plan Assessment/Plan Assess & Plan/Chief Complaint 1. Chest Pain, uncertain etiology--will hold on cardiac cath and treat anemia first 2. Acute on Chronic Anemia--transfuse 2u of blood today and then will plan on injectafor next week as outpatient 3. Recent Pneumonia--resolved Clinical Quality Measures DVT/VTE Risk/Contraindication: Risk Factor Score Per Nursin RFS Level Per Nursing on Admit: 1=Low/No VTE PPX CARIDAD JEFFERSON DO Jan 21, 2019 12:45 POS
--- NOTE | 2019-01-21 12:54 | NUR ---
CONSENT TO INFUSE BLOOD PRODUCTS IS SIGNED AND IN CHART
[2019-01-21] MEDS ORDERED: NS IV 500 ML 500 ML ONE (13:55)
[2019-01-21] MEDS ORDERED: ONDANSETRON 4 MG/2 ML (SDV) Z0FRAN IVP ONE (15:15)
[2019-01-21] MEDS ORDERED: ONDANSETRON 4 MG/2 ML (SDV) Z0FRAN ONE (15:16)
[2019-01-21] MEDS ORDERED: ONDANSETRON 4 MG/2 ML (SDV) Z0FRAN IVP PRN (15:30)
--- NOTE | 2019-01-21 15:39 | Progress Note - Cardiology ---
Cardiology SOAP Progress Note Subjective: No cp or palp or syncope in the hospital Exertional shortness of breath with moderate exertion No swelling Objective: I&O/Vital Signs 01/21/19 01/21/19 01/21/19 01/21/19 04:00 04:00 06:45 08:00 Temp 36.6 Pulse 68 70 Resp 16 B/P (MAP) 118/78 (91) Pulse Ox 98 98 98 O2 Delivery Room Air Room Air Room Air 01/21/19 01/21/19 01/21/19 01/21/19 08:00 09:00 12:00 12:00 Temp 36.8 36.4 Pulse 78 72 Resp 18 20 B/P (MAP) 105/71 (82) 118/80 (93) Pulse Ox 100 100 100 98 O2 Delivery Room Air Room Air Room Air Room Air 01/21/19 01/21/19 01/21/19 01/21/19 13:02 13:06 14:00 14:18 Temp 37.4 37.4 Pulse 70 82 78 78 Resp 19 19 B/P (MAP) 114/76 (89) 114/76 Pulse Ox 98 98 O2 Delivery Room Air Room Air 01/21/19 14:43 Temp 37.4 Pulse 76 Resp 20 B/P (MAP) 112/76 Pulse Ox 98 O2 Delivery Room Air 01/21/19 00:00 Intake Total 444 ml Balance 444 ml Weight (Pounds): 135 Weight (Ounces): 0.0 Weight (Calculated Kilograms): [id number] Constitutional: AAO x 3, well-developed, other (thin) Respiratory: No accessory muscle use, No respiratory distress; chest expansion is symmetric, chest is bilaterally symmetric, lungs clear to auscultation Cardiovascular: regular rate-rhythm; No JVD; S1 and S2 Gastrointestional: No tender; soft, round, audible bowel sounds Extremities: no lower extremity edema bilateral Neurologic/Psychiatric: grossly intact Skin: No rash on exposed areas, No ulcerations on exposed areas Results/Procedures: Labs Laboratory Tests 01/21/19 04:00: White Blood Count 4.6, Red Blood Count 2.92L, Hemoglobin 7.4L, Hematocrit 23L, Mean Corpuscular Volume 79L, Mean Corpuscular Hemoglobin 25, Mean Corpuscular Hemoglobin Concent 32, Red Cell Distribution Width 14.2, Platelet Count 449H, Mean Platelet Volume 9.2 01/21/19 04:10: Sodium Level 140, Potassium Level 3.8, Chloride Level 110H, Carbon Dioxide Level 20L, Anion Gap 10, Blood Urea Nitrogen 13, Creatinine 0.72, Estimat Glomerular Filtration Rate > 60, BUN/Creatinine Ratio 18, Glucose Level 87, Calcium Level 8.2L, Troponin I < 0.028 Laboratory Tests 01/20/19 12:30 01/21/19 04:00 01/21/19 04:10 A/P: Assessment: Chest pain of undetermined etiology, suspect GI source, no evidence of ACS ROBERTS, probably related to severe anemia. Anemia may be of GI source (managed by Dr Sosa) Echo of 01-20-19: LVEF 60-65%. Atrial septum redundant. Somewhat aneurysmal. PFO can not be excluded. No signif shunt seen. Severe anemia with microcytic indices (suggesting iron def anemia, possibly due to occult blood loss) Recent 15 lb weight loss in the last month (poor appetite) H/o bariatric surgery Pneumonia in Dec 2018, tx with ABX (Dr Sosa) CTA of the chest on 01-05-19 was negative for PE or other acute thoracic abnormalities H/o cholecystectomy Plan: * Our initial plan was to proceed with card cath, because pt had poor exercise capacity and developed shortness of breath on the treadmill (and chronic chest discomfort got worse) but now labs have indicated marked anemia. This may be the source of her symptoms. We have discussed her case with Dr Sosa (her pcp). * Plan is to try and correct anemia first and then decide on card cath. There is no evidence of any acute cor syndrome * Management of anemia is with Dr Sosa. I again discussed her case with Dr Sosa on the phone today MIRTHA MANZO MD FACP FAC CCDS Jan 21, 2019 15:39 POS
--- NOTE | 2019-01-21 16:11 | Discharge Inst-Cardiology ---
Discharge Inst-Cardiac Discharge Medications New Medications: Pantoprazole Sodium (Pantoprazole Sodium) 40 Mg Tablet.dr 40 MG PO DAILY, #30 TAB Continued Medications: Sumatriptan Succinate (Sumatriptan Succinate) 100 Mg Tablet PO UD PRN for MIGRAINE, TAB Topiramate (Trokendi Xr) 100 Mg Cap.er.24h 100 MG PO HS, TAB Patient Instructions Patient Instructions: Do not take aspirin Follow up appointment to see Dr. Latif in the next 7-10 days Take medications listed above as per BEN Soriano Jan 21, 2019 16:11 POS
--- NOTE | 2019-01-21 16:19 | Cardiology Discharge Summary ---
Diagnosis/Chief Complaint Date of Admission Jan 20, 2019 at 11:15 Date of Discharge Jan 21, 2019 Admission Diagnosis Chest pain of undetermined etiology ROBERTS Severe anemia with microcytic indices (suggesting iron def anemia, possibly due to occult blood loss) Recent 15 lb weight loss in the last month (poor appetite) H/o bariatric surgery Pneumonia in Dec 2018, tx with ABX (Dr Sosa) CTA of the chest on 01-05-19 was negative for PE or other acute thoracic abnormalities H/O cholecystectomy Final/Discharge Diagnosis Chest pain of undetermined etiology, suspect GI source, no evidence of ACS ROBERTS, probably related to severe anemia. Anemia may be of GI source (managed by Dr Sosa) Echo of 01-20-19: LVEF 60-65%. Atrial septum redundant. Somewhat aneurysmal. PFO can not be excluded. No signif shunt seen. Severe anemia with microcytic indices (suggesting iron def anemia, possibly due to occult blood loss) Recent 15 lb weight loss in the last month (poor appetite) H/o bariatric surgery Pneumonia in Dec 2018, tx with ABX (Dr Sosa) CTA of the chest on 01-05-19 was negative for PE or other acute thoracic abnormalities H/o cholecystectomy Chief Complaint/HPI Chief Complaint/HPI CC: Chest discomfort and shortness of breath HPI: Ms. Jurado is a 43 year old female who presented today for an out pt treadmill stress test. While exercising she reported sharp, stabbing chest pain which radiated from center of her chest to the left side. She reports dizziness at the time. She states approx a month ago she was treated as an out pt for pn eumonia. She reports since then she has had sharp, stabbing mid-sternal chest pain which has been constant. It changes in intensity with activity, becoming worse and radiating across her chest. She states she has had increasing dyspnea. She reports weight loss of approx 15 lbs in the last month. She reports poor appetite. She states previous the the pneumonia she was running 7- 10 mile per day training for a / marathon. She denies any n/v/d. She denies any fever or chills since recovering from pneumonia. She states a few days ago she was at [employer] squatting down to look at lower shelf and when she stood up she felt very lightheaded and as though she might pass out, however she did not. Discharge Summary Procedures None. Discharge Physical Examination Please refer to our progress note of today's date Hospital Course Please refer to our progress note of today's date. We will hold aspirin since there is no evidence of ACS and because anemia is suspected to be d/t chronic slow GI bleed Labs Laboratory Tests 01/20/19 12:30 01/21/19 04:00 01/21/19 04:10 Discussion & Recommendations Discussion Our initial plan was to proceed with card cath, because pt had poor exercise capacity and developed shortness of breath on the treadmill (and chronic chest discomfort got worse) but now labs have indicated marked anemia. This may be the source of her symptoms. We have discussed her case with Dr Sosa (her pcp). Plan is to try and correct anemia first and then decide on card cath. There is no evidence of any acute cor syndrome Management of anemia is with Dr Sosa. F/U in our office in 7-10 days Home Medications Reviewed patient Home Medication Reconciliation performed by pharmacy medication reconciliations earth science technician and/or nursing. Patients Allergies have been reviewed. Discharge Home Medications: Reviewed and agree with Discharge Medication list on patient's Discharge In struction sheet Clinical Quality Measures DVT/VTE Risk/Contraindication: Risk Factor Score Per Nursin RFS Level Per Nursing on Admit: 1=Low/No VTE PPX BEN ANNA Jan 21, 2019 16:19 POS
--- OUTSIDE RECORDS SUMMARY | 2019-02-14 16:38 | XMS REPORT | Continuity of Care Document ---
Author Organization Unknown Address Unknown Phone Unavailable Allergies Active Description Code Type Severity Reaction Onset Reported/Identified Relationship to Patient Clinical Status Yes SULFAMETHOXAZOLE-TRIMETHOPRIM SULFAMETHOXAZOLE-TRI UNKNOWN Yes SULFAMETHOXAZOLE-TRIMETHOPRIM UNKNOWN UNKNOWN Medications There is no data. Problems Date Dx Coded Attending Type Code Diagnosis Diagnosed By 06/02/2009 401.1 LISA GN ESSENTIAL HYPERTENSION 06/02/2009 461.0 Acut e Maxillary Sinusitis 06/02/2009 477.0 Julian rgic Rhinitis, Due To Pollen 06/02/2009 V24.1 Post Care And Examination, Lactating Mother 06/02/2009 SHANIKA MURDOCK MD 401.1 BENIGN ESSENTIAL HYPERTENSION 06/02/2009 SHANIKA MURDOCK MD 461.0 Acute Maxillary Sinusitis 06/02/2009 SHANIKA MURDOCK MD 477.0 Allergic Rhinitis, Due To Pollen 06/02/2009 SHANIKA MURDOCK MD V24.1 Care And Examination, Lactating Mother 06/16/2009 250.00 CAROLYN BETES MELLITUS TYPE II - UNCOMPLICATED, CONTROLLED 06/16/2009 401.9 HYPE RTENSION, UNSPECIFIED ESSENTIAL 06/16/2009 SHANIKA MURDOCK MD 250.0 0 DIABETES MELLITUS TYPE II - UNCOMPLICATED, CONTROLLED 06/16/2009 SHANIKA MURDOCK MD 401.9 HYPERTENSION, UNSPECIFIED ESSENTIAL 07/19/2009 527.2 Sial oadenitis 07/19/2009 SHANIKA MURDOCK MD 527.2 Sialoadenitis 09/23/2009 250.03 Carolyn betes 1 Uncontrolled 09/23/2009 461.9 Sinu sitis Acute 09/23/2009 733.6 Tiet ze's Disease 09/23/2009 SHANIKA MURDOCK MD 250.0 3 Diabetes 1 Uncontrolled 09/23/2009 SHANIKA MURDOCK MD 461.9 Sinusitis Acute 09/23/2009 SHANIKA MURDOCK MD 733.6 Tietze's Disease 11/14/2009 704.00 KAYLA PECIA, UNSPECIFIED 11/14/2009 SHANIKA MURDOCK MD 704.0 0 ALOPECIA, UNSPECIFIED 01/05/2010 380.4 Impa cted Cerumen 01/05/2010 SHANIKA MURDOCK MD 380.4 Impacted Cerumen 01/09/2010 780.79 Fatigue 01/09/2010 786.05 Cecilia rtness Of Breath 01/09/2010 787.02 [place] sea Alone 01/09/2010 SHANIKA MURDOCK MD 780.7 9 Fatigue 01/09/2010 SHANIKA MURDOCK MD 786.0 5 Shortness Of Breath 01/09/2010 SHANIKA MURDOCK MD 787.0 2 Nausea Alone 01/16/2010 300.00 ANX IETY UNSPEC 01/16/2010 SHANIKA MURDOCK MD 300.0 0 ANXIETY UNSPEC 02/09/2010 461.8 Othe r Acute Sinusitis 02/09/2010 SHANIKA MURDOCK MD 461.8 Other Acute Sinusitis 04/06/2010 382.9 Otit is Media 04/06/2010 786.2 Cough 04/06/2010 SHANIKA MURDOCK MD 382.9 Otitis Media 04/06/2010 SHANIKA MURDOCK MD 786.2 Cough 07/13/2010 009.2 Infe ctious Diarrhea 07/13/2010 SHANIKA MURDOCK MD 009.2 Infectious Diarrhea 02/16/2011 486 Pneumo jr Organism Unspecified 02/16/2011 SHANIKA MURDOCK MD 486 Pneumonia Organism Unspecified 08/06/2011 686.9 Unsp ecified Local Infection Of Skin And Subcutaneous Tissue 08/06/2011 SHANIKA MURDOCK MD 686.9 Unspecified Local Infection Of Skin And Subcutaneous Tissue 09/24/2011 461.9 Sinu sitis Acute 09/24/2011 SHANKIA MURDOCK MD 461.9 Sinusitis Acute 04/11/2012 311 DEPRES SIVE DISORDER NOT ELSEWHERE CLASSIFIED 04/11/2012 SHANIKA MURDOCK MD 311 DEPRESSIVE DISORDER NOT ELSEWHERE CLASSIFIED 05/13/2012 SHANIKA MURDOKC MD 728.7 1 PLANTAR FASCIAL FIBROMATOSIS 11/23/2016 W 300.00 ANX IETY STATE, UNSPECIFIED 11/23/2016 W 300.01 BARNEY IC DISORDER WITHOUT AGORAPHOBIA 11/23/2016 W F41.0 RAYO C DISORDER [EPISODIC PAROXYSMAL ANXIETY] WITHOUT AGORAPHOBIA 11/23/2016 W F41.9 ANXI ETY DISORDER, UNSPECIFIED 11/26/2016 W 300.00 ANX IETY STATE, UNSPECIFIED 11/26/2016 W 300.01 BARNEY IC DISORDER WITHOUT AGORAPHOBIA 11/26/2016 W F41.0 RAYO C DISORDER [EPISODIC PAROXYSMAL ANXIETY] WITHOUT AGORAPHOBIA 11/26/2016 W F41.9 ANXI ETY DISORDER, UNSPECIFIED Procedures Code Description [place] [address] A1C (IN-HOUSE) 04/11/2012 [id number] MICR O ALBUMIN-IN HOUSE 04/11/2012 Results Test Result Range Thyroid Stimulating Hormone - 11/23/16 1 6:20 TSH 0.52 mIU/mL 0.32-5.00 Encounters ACCT No. Visit Date/Time Discharge Status Pt. Type Provider Facility Loc./Unit Complaint [id number] 09/27/2014 22:28:49 09/27/2014 23:59: 59 CLS Outpatient Shukri Brasher [id number] 05/13/2012 16:04:00 05/13/2012 23:59: 59 CLS Outpatient SHANIKA MURDOCK MD [id number] 04/11/2012 10:23:00 04/11/2012 23:59: 59 CLS Outpatient [facility] 11/26/2014 13:24:40 ACT Document Registration [id number] 11/23/2016 16:20:00 11/23/2016 23:59: 00 DIS Outpatient Meliza Frey [id number] 06/22/2016 09:51:00 06/22/2016 23:59: 00 DIS Outpatient Meliza Frey [id number] 11/26/2016 11:20:00 Document Registration [id number] 11/23/2016 14:06:00 Document Registration
== END 2019-01-21 16:09 | disposition home or self-care (01) ==
LOC: CARD 09:10 → CSD 11:10 → UNDOADMOB 11:15 → UNDODISOB 01-21 20:56
PROVIDERS: ADMIT Internal Medicine Cardiovascular Disease; ATTEND Internal Medicine Cardiovascular Disease
DX: R06.09 Other forms of dyspnea (principal); D64.9 Anemia, unspecified; Z90.49 Acquired absence of other specified parts of digestive tract; Z98.84 Bariatric surgery status; Z88.2 Allergy status to sulfonamides
CPT/HCPCS: 36415; 71046; 80048; 80053; 80061; 83735; 84443; 84484; 84703; 85027; 85610; 85652; 86850; 86900; 86901; 86920; 93005; 93017; 93306; 96374; 96376

== ENCOUNTER → 2019-01-26 | Outpatient (CLI) | payer OTHER ==
[~2019-01-26] MED LIST changes: +PANT40TA3 PO; +SUMA100T3 PO; +TOPI100C6 PO
[2019-01-26 15:10] LABS: BASOPHILS # (AUTO) 0.1 10^3/uL (0.0-0.1); BASOPHILS % (AUTO) 1 % (0-10); EOSINOPHILS # (AUTO) 0.2 10^3/uL (0.0-0.3); EOSINOPHILS % (AUTO) 3 % (0-10); HEMATOCRIT 31 % (35-52); HEMOGLOBIN 9.8 G/DL (11.5-16.0); LYMPHOCYTES # (AUTO) 1.7 X 10^3 (1.0-4.0); LYMPHOCYTES % (AUTO) 31 % (12-44); MEAN CORPUSCULAR HEMOGLOBIN 26 PG (25-34); MEAN CORPUSCULAR HGB CONC 32 G/DL (32-36); MEAN CORPUSCULAR VOLUME 81 FL (80-99); MEAN PLATELET VOLUME 8.7 FL (7.4-10.4); MONOCYTES # (AUTO) 0.6 X 10^3 (0.0-1.0); MONOCYTES % (AUTO) 10 % (0-12); NEUTROPHILS # (AUTO) 3.1 X 10^3 (1.8-7.8); NEUTROPHILS % (AUTO) 55 % (42-75); PLATELET COUNT 406 10^3/uL (130-400); RED CELL DISTRIBUTION WIDTH 15.3 % (10.0-14.5); WHITE BLOOD COUNT 5.6 10^3/uL (4.3-11.0)
== END ==
LOC: LAB 14:57
PROVIDERS: ATTEND Family Medicine
DX: D50.9 Iron deficiency anemia, unspecified (principal)
CPT/HCPCS: 36415; 85025

== ENCOUNTER 2019-02-06 12:41 | Outpatient (RCR) | payer OTHER ==
[2019-01-30 13:25] VITALS: BP 115/76
--- NOTE | 2019-01-30 15:10 | NUR ---
I.V COMPLETE, IV FLUSHED AND REMOVED AT THIS TIME WITH TIP INTACT. PT AMBULATED TO CAR, WITH SPOUSE
[~2019-02-06] VITALS: Wt 51.0 kg
[~2019-02-06 12:41] MED LIST changes: +FERRIC CARBOXYMALTOSE INJ 750 MG in NS (IVPB) 250 ML IV SCH
[2019-02-06 12:45] VITALS: BP 92/68
== END 2019-02-06 14:05 | disposition home or self-care (01) ==
LOC: SDC 12:41
PROVIDERS: ATTEND Family Medicine
DX: D50.9 Iron deficiency anemia, unspecified (principal); K91.2 Postsurgical malabsorption, not elsewhere classified; Z98.84 Bariatric surgery status
CPT/HCPCS: 96365

== ENCOUNTER → 2020-06-14 | Outpatient (CLI) | payer OTHER ==
[~2020-06-14] MED LIST changes: -FERRIC CARBOXYMALTOSE INJ 750 MG in NS (IVPB) 250 ML IV SCH; -PANT40TA3 PO; +PANT40TA52 PO
== END ==
LOC: LABNPT 06:53
PROVIDERS: ATTEND Internal Medicine
DX: R50.9 Fever, unspecified (principal); R51.9 Headache, unspecified; Z20.822 Contact with and (suspected) exposure to COVID-19
CPT/HCPCS: 87804; U0002; 87635

== ENCOUNTER → 2020-11-04 | Outpatient (CLI) | payer OTHER ==
--- NOTE | 2020-11-04 10:23 | Diagnostic Imaging Report ---
PROCEDURE: US Hepatic (Liver). TECHNIQUE: Multiple real-time grayscale images were obtained over the right upper quadrant in various projections. INDICATION: Right upper quadrant pain. FINDINGS: Liver is normal in size at 16 cm. No discrete liver mass is detected. Portal vein is patent and shows normal direction of flow. Gallbladder is surgically absent. There is no biliary ductal dilatation. Pancreas unremarkable. Aorta is nonaneurysmal. IVC is patent. Right kidney is without calculi or hydronephrosis. There is no ascites. IMPRESSION: Unremarkable hepatic ultrasound. Dictated by: Dictated on workstation # [id number]
== END ==
LOC: RAD 09:00
PROVIDERS: ATTEND Nurse Practitioner Family
DX: R10.11 Right upper quadrant pain (principal); G43.909 Migraine, unspecified, not intractable, without status migrainosus
CPT/HCPCS: 76705

== ENCOUNTER → 2020-11-17 | Outpatient (CLI) | payer OTHER ==
[~2020-11-17] MED LIST changes: +GADOBUTROL 7.5 MMOL/7.5 ML (GADAVIST) VIAL IV ONE
--- NOTE | 2020-11-17 11:17 | Diagnostic Imaging Report ---
PROCEDURE: MR imaging of the brain with and without contrast. TECHNIQUE: Multiplanar, multisequence MR imaging of the brain was performed with and without contrast. INDICATION: Severe migraine headaches. Ventricles and sulci are within normal limits. No sulcal effacement or midline shift is identified. No acute intra-axial or extra-axial hemorrhage is detected. There is no diffusion restriction identified to suggest acute ischemia. The normal expected flow-voids within the carotid siphons are seen. The corpus callosum is unremarkable. The sella and parasellar structures are unremarkable. No abnormal enhancement following contrast administration is identified. IMPRESSION: Unremarkable pre and postcontrast MRI of the brain. Dictated by: Dictated on workstation # [id number]
== END ==
LOC: RAD 09:30
PROVIDERS: ATTEND Nurse Practitioner Family
DX: G43.909 Migraine, unspecified, not intractable, without status migrainosus (principal)
CPT/HCPCS: 70553

== ENCOUNTER 2020-12-16 05:30 | Outpatient (RCR) | payer OTHER ==
[~2020-12-16] VITALS: Ht 157.5 cm; Wt 55.8 kg
[~2020-12-16 05:30] MED LIST changes: +DOCU100C37 PO; +FERR-84 PO; -GADOBUTROL 7.5 MMOL/7.5 ML (GADAVIST) VIAL IV ONE; +PEDI18TA2 PO
== END 2020-12-16 08:32 | disposition home or self-care (01) ==
LOC: PREOP 05:30
PROVIDERS: ATTEND Surgery
DX: Z01.812 Encounter for preprocedural laboratory examination (principal); K21.9 Gastro-esophageal reflux disease without esophagitis; Z20.822 Contact with and (suspected) exposure to COVID-19
CPT/HCPCS: 87635

== ENCOUNTER 2020-12-19 11:01 | Day surgery (SDC) | payer OTHER ==
[2020-12-19] VITALS (8 sets, daily range): BP systolic 97–111; BP diastolic 57–696
[~2020-12-19] VITALS: Ht 157.5 cm; Wt 55.8 kg
[2020-12-19] MEDS ORDERED: LACTATED RINGERS 1,000 ML IV STA (11:21)
[2020-12-19] MEDS ORDERED: LACTATED RINGERS 1,000 ML IV ONE (11:23)
[2020-12-19] MEDS ORDERED: HURRICAINE EXT TUBE (BENZOCAINE) XX PRN (11:30)
[2020-12-19] MEDS ORDERED: MIDAZOLAM 2 MG/2 ML (VERSED) VIAL ONE (12:02)
[2020-12-19] MEDS ORDERED: proPOfol 200 MG/20 ML (DIPRIVAN) VIAL IV ONE (12:02)
--- NOTE | 2020-12-19 12:26 | Anesthesia-General Post-Op ---
MAC Patient Condition Mental Status/LOC: Same as Preop Cardiovascular: Satisfactory Nausea/Vomiting: Absent Respiratory: Satisfactory Pain: Controlled Complications: Absent Post Op Complications Complications None Follow Up Care/Instructions Patient Instructions None needed. Anesthesiology Discharge Order Discharge Order Patient is doing well, no complaints, stable vital signs, no apparent adverse anesthesia problems. No complications reported per nursing. FLOR ROBLEDO CRNA Dec 19, 2020 12:26
--- NOTE | 2020-12-19 12:27 | Progress Note-Post Operative ---
Post-Operative Progess Note Surgeon (s)/Relay Shop Supervisor (s) Surgeon GEETA PUENTES DO Relay Shop Supervisor: none Pre-Operative Diagnosis Gastritis, weight loss Post-Operative Diagnosis Gastritis Hiatal hernia Esophagitis Gastric mass Procedure & Operative Findings Date of Procedure 12/19/20 Procedure Performed/Findings EGD with bx PROCEDURE NOTE: After informed consent was obtained, the patient was brought to the endoscopy suite, placed in bed in left lateral decubitus position. She was administered IV sedation by the CERTIFIED HAND THERAPIST who then monitored vitals the entire time, heart rate, blood pressure and pulse ox and the scope was inserted down the mouth through the esophagus into the stomach. On the way down, noted some mild esophagitis, took a picture and pushed into the stomach. The antrum was very inflamed and looked almost like cobblestone. Pushed past the antrum into the duodenum and went down quite a ways, duodenum looked good. Pulled back and did a biopsy of antrum, then retroflexed the scope, and saw a small hiatal hernia, took a picture of this. Then did a biopsy of the body of the stomach and then pulled the scope into the GE junction. While pulling into the GE junction saw something that looked like a mass or polyp; did a biopsy of this. Then did a biopsy of the GE junction. Pushed the scope back into the stomach and saw an old stitch, took a picture. Finally suctioned all the air out of the stomach and pulled the scope up the esophagus and out the mouth. The patient tolerated the procedure, and she recovered in endoscopy suite. Anesthesia Type IV sedation by CERTIFIED HAND THERAPIST Estimated Blood Loss Estimated blood loss (mL): scant Specimens/Packing Specimens Removed antral bx body of stomach bx gastric mass just below GE jxn GE jxn bx GEETA PUENTES DO Dec 19, 2020 12:27
--- NOTE | 2020-12-19 12:28 | Endoscopy Discharge Instruct ---
Endo Procedure/Findings Findings 1.: Gastritis 2.: Hiatal Hernia 3.: Other Findings (?? mass) Discharge Instructions - Activity: You might feel a little sleepy until tomorrow. This is due to the medicine you received to relax you. Until tomorrow, you should: NOT drive a car, operate machinery or power tools. NOT drink any alcoholic beverages. NOT make any important decisions or sign importortant papers. Do not return to work until tomorrow, unless otherwise instructed. Resume previous activities tomorrow. Diet: Start by taking liquids. If you tolerate liquids, advance to solid food. 1.: EGD in 1 year Notify Physician - If you experience excessive bleeding, unusual abdominal pain, fever, or chest pain, contact your doctor immediately. GEETA PUENTES DO Dec 19, 2020 12:28
== END 2020-12-19 13:15 | disposition home or self-care (01) ==
LOC: ENDO 11:01
PROVIDERS: ATTEND Surgery
DX: K29.50 Unspecified chronic gastritis without bleeding (principal); K21.00 Gastro-esophageal reflux disease with esophagitis, without bleeding; K44.9 Diaphragmatic hernia without obstruction or gangrene; K31.9 Disease of stomach and duodenum, unspecified; I10 Essential (primary) hypertension; F32.A Depression, unspecified; E66.9 Obesity, unspecified; Z68.22 Body mass index [BMI] 22.0-22.9, adult; Z88.2 Allergy status to sulfonamides

== ENCOUNTER → 2021-02-23 | Outpatient (CLI) | payer OTHER | LOC: LABNPT 06:50 | PROVIDERS: ATTEND Internal Medicine | DX: J32.9 Chronic sinusitis, unspecified (principal) | CPT/HCPCS: 87635; 87636; 87804 ==

== ENCOUNTER → 2021-03-17 | Outpatient (CLI) | payer OTHER | LOC: LABNPT 06:27 | PROVIDERS: ATTEND Internal Medicine | DX: R09.81 Nasal congestion (principal); Z20.822 Contact with and (suspected) exposure to COVID-19 | CPT/HCPCS: 87635; 87804 ==

== ENCOUNTER 2021-11-08 15:08 | Outpatient (RCR) | payer OTHER | END 2021-11-17 | disposition home or self-care (01) | PROVIDERS: ATTEND Orthopaedic Surgery | DX: M77.8 Other enthesopathies, not elsewhere classified (principal) ==

== ENCOUNTER 2021-12-13 13:30 | Outpatient (RCR) | payer OTHER | END 2021-12-18 | disposition home or self-care (01) | PROVIDERS: ATTEND Orthopaedic Surgery | DX: M77.8 Other enthesopathies, not elsewhere classified (principal) ==

== ENCOUNTER 2022-01-09 13:44 | Outpatient (RCR) | payer OTHER | END 2022-01-17 | disposition home or self-care (01) | PROVIDERS: ATTEND Orthopaedic Surgery | DX: M77.8 Other enthesopathies, not elsewhere classified (principal) ==

== ENCOUNTER 2022-02-08 09:49 | Outpatient (RCR) | payer OTHER | END 2022-02-17 | disposition home or self-care (01) | PROVIDERS: ATTEND Orthopaedic Surgery | DX: M77.8 Other enthesopathies, not elsewhere classified (principal) ==

== ENCOUNTER → 2022-02-08 | Outpatient (CLI) | payer OTHER ==
--- NOTE | 2022-02-08 10:54 | Diagnostic Imaging Report ---
CLINICAL INDICATION: Patient chronic sinusitis and sinus surgery. EXAM: Axial CT scan of the maxillofacial structures without IV contrast . Coronal and sagittal reformations were performed. Auto Exposure Controls were utilized during the CT exam to meet ALARA standards for radiation dose reduction. COMPARISON: None. FINDINGS: PARANASAL SINUSES: FRONTAL: Unremarkable. ETHMOID: There is mild mucosal thickening involving ethmoid sinus. MAXILLARY: There is mild mucosal thickening involving both maxillary sinuses (right side more than the left). SPHENOID: There is mild mucosal thickening and secretions seen. OTHER PARANASAL SINUS FINDINGS: There are postop changes with bilateral medial maxillary wall antrostomies, bilateral uncinectomies, partial left middle turbinectomy, and bilateral ethmoidectomies. NASAL SEPTUM: There is 3 mm of rightward nasal septal deviation. VISUALIZED TEMPORAL BONE STRUCTURES: Unremarkable. BONY STRUCTURES: Unremarkable. EXTRACRANIAL SOFT TISSUE/ ORBITS: Unremarkable. IMPRESSION: 1: There are postop changes to the paranasal sinuses. There is mild paranasal sinus disease. 2: There is rightward nasal septal deviation. Dictated by: Dictated on workstation # [id number]
== END ==
LOC: RAD 10:45
PROVIDERS: ATTEND Otolaryngology Otolaryngology/Facial Plastic Surgery
DX: J32.9 Chronic sinusitis, unspecified (principal)
CPT/HCPCS: 70486

== ENCOUNTER 2022-03-15 13:45 | Outpatient (RCR) | payer OTHER | END 2022-03-20 | disposition home or self-care (01) | PROVIDERS: ATTEND Orthopaedic Surgery | DX: M77.8 Other enthesopathies, not elsewhere classified (principal) ==

== ENCOUNTER 2022-04-05 13:28 | Outpatient (RCR) | payer OTHER | END 2022-04-17 | disposition home or self-care (01) | PROVIDERS: ATTEND Orthopaedic Surgery | DX: M77.8 Other enthesopathies, not elsewhere classified (principal) ==

== ENCOUNTER 2022-04-18 13:48 | Outpatient (RCR) | payer OTHER | END 2022-05-18 | disposition home or self-care (01) | PROVIDERS: ATTEND Orthopaedic Surgery | DX: M77.8 Other enthesopathies, not elsewhere classified (principal) ==

== ENCOUNTER → 2022-10-18 | Outpatient (RCR) | payer OTHER | END | disposition home or self-care (01) | PROVIDERS: ATTEND Orthopaedic Surgery | DX: Z98.890 Other specified postprocedural states (principal) ==

== ENCOUNTER 2022-11-08 14:28 | Outpatient (RCR) | payer OTHER | END 2022-11-17 | disposition home or self-care (01) | PROVIDERS: ATTEND Orthopaedic Surgery | DX: Z98.890 Other specified postprocedural states (principal); R53.1 Weakness ==